=== PATIENT | male | born 1960 | race Caucasian/White ===

== ENCOUNTER 2020-04-03 16:13 | Outpatient (CLI) | payer BC ==
[2020-04-03 16:59] LABS: PARTIAL THROMBOPLASTIN TIME 26 SECONDS (22-32)
== END 2020-04-03 23:59 | disposition home or self-care (01) ==
LOC: LAB 16:13
PROVIDERS: ATTEND Otolaryngology
DX: J33.0 Polyp of nasal cavity (principal); J32.0 Chronic maxillary sinusitis
CPT/HCPCS: 36415; 85576; 85610; 85730